=== PATIENT | male | born 1985 | race Caucasian/White ===

== ENCOUNTER 2019-11-17 15:59 | Emergency (ER) | payer OTHER ==
[~2019-11-17] VITALS: Ht 170.2 cm; Wt 83.9 kg
== END 2019-11-17 23:14 | disposition home or self-care (01) ==
LOC: ER 15:59
DX: N20.0 Calculus of kidney (principal); R10.32 Left lower quadrant pain

== ENCOUNTER 2022-12-26 09:30 | Inpatient (IN) | payer OTHER ==
[~2022-12-26] VITALS: Ht 167.6 cm; Wt 88.5 kg
[2022-12-26] MEDS ORDERED: LOSARTAN POTASS50 MG PO (10:57)
[2022-12-26] MEDS ORDERED: NIFEDIPINE20 MG PO (10:57)
[2022-12-26] MEDS ORDERED: LIPITOR40 MG PO (10:58)
[2022-12-26] MEDS ORDERED: VITAMIN C100 MG PO (10:59)
[2022-12-26] MEDS ORDERED: ADULT LOW DOSE81 M1 PO (10:59)
[2022-12-26] MEDS ORDERED: D3 + K2 DOTS 11 EACH PO (11:00)
[2022-12-26] MEDS ORDERED: MULTIPLE VITAM1 EAC2 PO (11:00)
== END 2023-01-02 15:12 | disposition home or self-care (01) | DRG 329 ==
LOC: SURH 12-31 05:19 → O/R 12-31 05:19 → SURH 12-31 09:00
PROVIDERS: ADMIT Colon & Rectal Surgery; ATTEND Colon & Rectal Surgery
PROC: 0D9W4ZZ Drainage of Peritoneum, Percutaneous Endoscopic Approach (ICD-10-PCS; 2022-12-31)
PROC: 0DJD8ZZ Inspection of Lower Intestinal Tract, Via Natural or Artificial Opening Endoscopic (ICD-10-PCS; 2022-12-31)
PROC: 0DTN4ZZ Resection of Sigmoid Colon, Percutaneous Endoscopic Approach (ICD-10-PCS; principal; 2022-12-31 09:00)
DX: K57.20 Diverticulitis of large intestine with perforation and abscess without bleeding (principal); K65.8 Other peritonitis

== ENCOUNTER 2023-11-13 08:57 | Day surgery (SDC) | payer OTHER ==
[~2023-11-13 08:57] MED LIST: ADULT LOW DOSE81 M1 PO; D3 + K2 DOTS 11 EACH PO; LIPITOR40 MG PO; LOSARTAN POTASS50 MG PO; MULTIPLE VITAM1 EAC2 PO; NIFEDIPINE20 MG PO; VITAMIN C100 MG PO
== END 2023-11-13 16:25 | disposition home or self-care (01) ==
LOC: AMB-ENDOS 08:57
PROVIDERS: ATTEND Colon & Rectal Surgery
DX: K63.5 Polyp of colon (principal); K62.5 Hemorrhage of anus and rectum; K57.30 Diverticulosis of large intestine without perforation or abscess without bleeding; Z88.6 Allergy status to analgesic agent; Z20.822 Contact with and (suspected) exposure to COVID-19; K64.8 Other hemorrhoids